=== PATIENT | female | born 1980 | race Caucasian/White ===

== ENCOUNTER 2023-03-30 20:40 | Emergency (ER) | payer MEDICARE ==
[2023-03-30 20:46] VITALS: PULSE 88; RESP 18
[2023-03-30 21:07] VITALS: BP 109/67; TEMP 98.6
--- NOTE | 2023-03-30 22:01 | ED ---
General Adult HPI - General Chief complaint: Recheck/Abnormal Lab/Rx Stated complaint: Medication Refill Time Seen by Provider: 03/30/23 20:55 Source: patient Mode of arrival: ambulatory Limitations: no limitations - History of Present Illness Initial comments: A 42-year-old female presented to the ED with a chief complaint of medication refill. Patient states that her mother lives in this area and states that due to some health issues she has moved back here from [place]. States that she has been having difficulty establishing primary care and has run out of her medications and therefore is presenting to the ED for refill. Otherwise, has no medical complaints at this time. Denies chest pain, soreness about, abdominal pain, nausea, vomiting, diarrhea, change in bowel or bladder habits, fever, chills. No other complaints. - Related Data Previous Rx's Medication Instructions Recorded OXcarbazepine [Trileptal] 1,200 mg PO BID #120 tab 03/30/23 Paliperidone [Paliperidone ER] 9 mg PO DAILY #30 tab 03/30/23 Phenytoin Sodium Extended 300 mg PO BID 30 Days #180 capsule 03/30/23 [Dilantin] Pregabalin [Lyrica] 225 mg PO TID 4 Days #12 cap 03/30/23 Venlafaxine HCl [Effexor] 150 mg PO BID #120 tab 03/30/23 clonazePAM [KlonoPIN] 0.5 mg PO BID 3 Days #6 tablet 03/30/23 Allergies Allergy/AdvReac Type Severity Reaction Status Date / Time NSAIDS (Non-Steroidal Allergy Nausea & Verified 03/30/23 20:45 Anti-Inflamma Vomiting Penicillins Allergy Unknown Verified 03/30/23 20:45 steroids Allergy Unknown Uncoded 03/30/23 20:45 Review of Systems ROS Statement: Those systems with pertinent positive or pertinent negative responses have been documented in the HPI. ROS Other: All systems not noted in ROS Statement are negative. Past Medical History Past Medical History: Seizure Disorder Additional Past Medical History / Comment(s): Crohns Past Surgical History: No Surgical Hx Reported Past Psychological History: Anxiety, Bipolar, Depression, PTSD, Schizoaffective Disorder General Exam Limitations: no limitations General appearance: alert, in no apparent distress ENT exam: Present: normal exam Respiratory exam: Present: normal lung sounds bilaterally Cardiovascular Exam: Present: regular rate, normal rhythm GI/Abdominal exam: Present: soft Neurological exam: Present: alert, oriented X3 Skin exam: Present: warm, dry Course Vital Signs 03/30/23 03/30/23 20:42 20:57 Temperature 97.5 F L 98.6 F Pulse Rate 88 88 Respiratory 18 18 Rate Blood Pressure 117/67 109/67 O2 Sat by Pulse 97 99 Oximetry Medical Decision Making - Medical Decision Making Was pt. sent in by a medical professional or institution (, DAISY, [employer]ICAL GOODS DRILLING MACHINE OPERATOR, urgent care, hospital, or assisted...) When possible be specific @ -No Did you speak to anyone other than the patient for history (EMS, parent, family, police, friend...)? What history was obtained from this source @ -No Did you review nursing and triage notes (agree or disagree)? Why? @ -I reviewed and agree with nursing and triage notes Were old charts reviewed (outside hosp., previous admission, EMS record, old EKG, old radiological studies, urgent care reports/EKG's, assisted records)? Report findings @ -No old charts were reviewed Differential Diagnosis (chest pain, altered mental status, abdominal pain women, abdominal pain men, vaginal bleeding, weakness, fever, dyspnea, syncope, headache, dizziness, GI bleed, back pain, seizure, CVA, palpatations, mental health, musculoskeletal)? @ -not applicable EKG interpreted by me (3pts min.). @ -As above X-rays interpreted by me (1pt min.). @ -None done CT interpreted by me (1pt min.). @ -None done U/S interpreted by me (1pt. min.). @ -None done What testing was considered but not performed or refused? (CT, X-rays, U/S, labs)? Why? @ -None What meds were considered but not given or refused? Why? @ -None Did you discuss the management of the patient with other professionals (professionals i.e. DAISY Carrillo, [employer] DRILLING MACHINE OPERATOR, lab, RT, psych nurse, medical social consultant, director corporate security, teacher, combat information center officer, case management coordinator)? Give summary @ -No Was smoking cessation discussed for >3mins.? @ -No Was critical care preformed (if so, how long)? @ -No Were there social determinants of health that impacted care today? How? (Homelessness, low income, unemployed, alcoholism, drug addiction, transportation, low edu. Level, literacy, decrease access to med. care, care home, rehab)? @ -No Was there de-escalation of care discussed even if they declined (Discuss DNR or withdrawal of care, Hospice)? DNR status @ -No What co-morbidities impacted this encounter? (DM, HTN, Smoking, COPD, CAD, Cancer, CVA, ARF, Chemo, Hep., AIDS, mental health diagnosis, sleep apnea, morbid obesity)? @ -None Was patient admitted / discharged? Hospital course, mention meds given and route, prescriptions, significant lab abnormalities, going to OR and other pertinent info. @ -Discharge A 32-year-old female who recently moved from [place] and has been unable to establish primary care presented to the ED for medication refill. At this time, currently has no medical complaints. Provided month supply of medications. Patient's information was left for case management coordinator to help patient establish primary care. Patient discharged home in stable condition. Undiagnosed new problem with uncertain prognosis? @ -No Drug Therapy requiring intensive monitoring for toxicity (Heparin, Nitro, Insulin, Cardizem)? @ -No Were any procedures done? @ -No Diagnosis/symptom? @ -Medication refill Acute, or Chronic, or Acute on Chronic? @ -Acute Uncomplicated (without systemic symptoms) or Complicated (systemic symptoms)? @ -Uncomplicated Side effects of treatment? @ -No Exacerbation, Progression, or Severe Exacerbation? @ -No Poses a threat to life or bodily function? How? (Chest pain, [place], [place], pneumonia, PE, COPD, DKA, ARF, appy, cholecystitis, CVA, Diverticulitis, Homicidal, Suicidal, threat to staff... and all critical care pts) @ -No Disposition Clinical Impression: Medication refill Disposition: HOME SELF-CARE Additional Instructions: Please establish primary care. Please return to the Emergency Department if symptoms worsen or any other concerns. Prescriptions: Phenytoin Sodium Extended [Dilantin] 300 mg PO BID 30 Days #180 capsule Venlafaxine HCl [Effexor] 150 mg PO BID #120 tab clonazePAM [KlonoPIN] 0.5 mg PO BID 3 Days #6 tablet Pregabalin [Lyrica] 225 mg PO TID 4 Days #12 cap Paliperidone [Paliperidone ER] 9 mg PO DAILY #30 tab OXcarbazepine [Trileptal] 1,200 mg PO BID #120 tab Is patient prescribed a controlled substance at d/c from ED?: Yes When asked, does pt state using other controlled substances?: Yes If prescribed controlled substance>3 days was MAPS reviewed?: Prescribed <3 Days Referrals: None,Stated [Primary Care Provider] - 1-2 days Time of Disposition: 22:17
[2023-03-30] MEDS ORDERED: MORPHINE SULFATE 4 MG/ML SYRINGE IM STA (22:05)
== END 2023-03-30 22:32 | disposition home or self-care (01) ==
LOC: EC 20:40
DX: Z76.0 Encounter for issue of repeat prescription (principal); Z88.6 Allergy status to analgesic agent; Z88.0 Allergy status to penicillin; Z88.8 Allergy status to other drugs, medicaments and biological substances; Z86.59 Personal history of other mental and behavioral disorders
CPT/HCPCS: 99283